=== PATIENT | male | born 1995 | race Caucasian/White ===

== ENCOUNTER 2018-07-08 12:14 | Emergency (ER) | payer OTHER ==
[~2018-07-08] VITALS: Ht 177.8 cm; Wt 73.5 kg
[2018-07-08 12:42] VITALS: BP 133/95; Ht 177.8 cm; Wt 73.5 kg
== END 2018-07-08 14:40 | disposition home or self-care (01) ==
LOC: ED 12:14 → EDBD 12:14 → ED 14:40
DX: M25.511 Pain in right shoulder (principal); M54.6 Pain in thoracic spine
CPT/HCPCS: J1885

== ENCOUNTER 2019-07-04 12:35 | Emergency (ER) | payer OTHER ==
[~2019-07-04] VITALS: Ht 177.8 cm; Wt 75.3 kg
[2019-07-04 12:39] VITALS: Ht 177.8 cm; Wt 75.3 kg
[2019-07-04 13:46] LABS: ALBUMIN 4.4 g/dL (3.4-5.0); ALKALINE PHOSPHATASE 54 U/L (46-116); ALT/SGPT 21 U/L (16-63); AST/SGOT 14 U/L (15-37); BILIRUBIN TOTAL 0.4 mg/dL (0.20-1.00); CALCIUM 9.4 mg/dL (8.5-10.1); CARBON DIOXIDE 28.9 mmol/L (21-32); CHLORIDE SERUM 107 mmol/L (98-107); CHOLESTEROL 169 mg/dL (<200); CREATININE SERUM 0.8 mg/dL (0.7-1.3); GFR1 > 60 mL/min; GLUCOSE SERUM 107 mg/dL (74-106); LIPASE 207 IU/L (73-393); SODIUM SERUM 143 mmol/L (136-145); TOTAL PROTEIN, SERUM 7.6 g/dL (6.4-8.2); TRIGLYCERIDES 30 mg/dL (<150)
[2019-07-04 13:54] LABS: T3 TOTAL 1.16 ng/mL
[2019-07-04 13:57] LABS: BASOPHIL % 0.3 % (0-2); PLATELET COUNT 194 x10^3mcL (130-400); RED CELL DISTRIBUTION WIDTH 12.6 % (11.5-14.5)
[2019-07-04 14:01] LABS: CHOLESTEROL/HDL RATIO 2.7; HDL CHOLESTEROL 62 mg/dL (40-60)
[2019-07-04 14:25] LABS: AMPHETAMINE QUAL UR NONE DETECTED (See below)
[2019-07-04 14:50] LABS: FREE T4 1.09 ng/dL (0.76-1.46); FREE THYROXINE INDEX 2.8 ug/dL (1.4-4.5); T4(THYROXINE) 8.9 ug/dL (4.7-13.3)
[2019-07-04 15:08] VITALS: BP 122/87
== END 2019-07-04 15:08 | disposition home or self-care (01) ==
LOC: ED 12:35
PROVIDERS: Specialist
DX: R42 Dizziness and giddiness (principal); R11.0 Nausea
CPT/HCPCS: 83880; 84439; Q0092